=== PATIENT | female | born 1955 | race Caucasian/White ===

== ENCOUNTER → 2017-11-23 | Outpatient (CLI) | payer OTHER ==
--- NOTE | 2017-11-23 09:40 | DIAGNOSTIC IMAGING REPORT ---
L HAND MIN 3 VIEWS ROUTINE CLINICAL HISTORY: Z79.899 LEFT HAND PAIN COMPARISON: None. DISCUSSION: The bones are mildly osteopenic. No fractures are visualized. There are no erosive or destructive changes. There are postsurgical changes present within the wrist. IMPRESSION: 1. Osteopenia 2. No fractures or dislocations 3. No evidence of erosive disease Electronically signed by: Alton Muniz M.D. 11/23/2017 9:39 AM Dictated Date/Time: 11/23/2017 9:38 AM
--- NOTE | 2017-11-23 09:50 | DIAGNOSTIC IMAGING REPORT ---
RIGHT HAND 3 VIEWS HISTORY: Right hand pain. COMPARISON: None. FINDINGS: There is no fracture or dislocation. Mild osteopenia. Moderate osteoarthritis at the second DIP joint. Mild osteoarthritis within the remaining distal interphalangeal joints of the fingers. No erosive changes identified. The bones are slightly osteopenic. No radiopaque foreign bodies. IMPRESSION: 1. Mild to moderate osteoarthritis as described above. 2. No erosive changes. 3. Mild osteopenia. Electronically signed by: Nicolas Irving M.D. 11/23/2017 9:49 AM Dictated Date/Time: 11/23/2017 9:39 AM
[2017-11-23 10:05] LABS: BASO % 0.3 %; BASO ABS # 0.02 K/uL (0-0.2); EOS % 4.9 %; EOS ABS # 0.29 K/uL (0-0.5); HEMOGLOBIN 13.1 g/dL (12.0-16.0); IG# 0.01 K/uL (0.00-0.02); LYMPH % 32.5 %; LYMPH ABS # 1.93 K/uL (1.2-3.4); MEAN CELL VOLUME 87.2 fL (80-100); MEAN CORPUSCULAR HEMOGLOBIN 29.3 pg (25-34); MEAN CORPUSCULAR HGB CONC 33.6 g/dl (32-36); MEAN PLATELET VOLUME 10.5 fL (7.4-10.4); MONO % 8.8 %; MONO ABS # 0.52 K/uL (0.11-0.59); NEUT % 53.3 %; NEUT ABS # 3.17 K/uL (1.4-6.5); PLATELET COUNT 186 K/uL (130-400); RED CELL DISTRIBUTION WIDTH CV 14.7 % (11.5-14.5); RED CELL DISTRIBUTION WIDTH SD 46.8 fL (36.4-46.3); WHITE BLOOD COUNT 5.94 K/uL (4.8-10.8)
[2017-11-23 10:45] LABS: ALBUMIN 3.8 gm/dl (3.4-5.0); ALKALINE PHOSPHATASE 78 U/L (45-117); ALT/SGPT 24 U/L (12-78); AST/SGOT 21 U/L (15-37); CREATININE 0.75 mg/dl (0.60-1.20); TOTAL PROTEIN 7.5 gm/dl (6.4-8.2)
== END | disposition home or self-care (01) ==
LOC: C.LAB1850 09:16
PROVIDERS: ATTEND Internal Medicine Rheumatology
DX: Z79.899 Other long term (current) drug therapy (principal)